=== PATIENT | male | born 1960 | race Two or more races ===

== ENCOUNTER → 2023-01-15 | Outpatient (CLI) | payer MEDICAID ==
[~2023-01-15] MED LIST: ALBUTEROL SULF 2.5 MG/0.5ML(0.5%) NEB SOLN ONE
== END | disposition home or self-care (01) ==
LOC: RT 11:00
PROVIDERS: ATTEND Internal Medicine Pulmonary Disease
DX: J44.9 Chronic obstructive pulmonary disease, unspecified (principal); R06.09 Other forms of dyspnea
CPT/HCPCS: 94060; 94727; 94729